=== PATIENT | male | born 1965 | race Caucasian/White ===

== ENCOUNTER → 2023-10-08 | Outpatient (CLI) | payer BC | LOC: M RAD 06:33 | PROVIDERS: ATTEND Family Medicine | DX: Z12.2 Encounter for screening for malignant neoplasm of respiratory organs (principal); F17.210 Nicotine dependence, cigarettes, uncomplicated; R91.8 Other nonspecific abnormal finding of lung field ==

== ENCOUNTER 2024-03-16 08:16 | Emergency (ER) | payer OTHER, BC ==
[~2024-03-16] VITALS: Ht 182.9 cm; Wt 68.7 kg
[2024-03-16] MEDS: BOOSTRIX VACCINE (TETANUS/DIPHTH/ACEL. PERTUSSIS) 0.5ML SYR IM ONE (09:26)
[2024-03-16] MEDS: LIDOCAINE 1% MDV 20ML VIAL SC ONE (09:26)
[2024-03-16 10:49] VITALS: BP 141/67; TEMP 98.3; O2SAT 98
[2024-03-16] MEDS: BACITRACIN OINTMENT 30GM TUBE TOP STA (10:54)
== END 2024-03-16 10:55 | disposition home or self-care (01) ==
LOC: M ED 08:16
DX: S61.207A Unspecified open wound of left little finger without damage to nail, initial encounter (principal); W23.2XXA Caught, crushed, jammed or pinched between a moving and stationary object, initial encounter; Y92.9 Unspecified place or not applicable; Y93.9 Activity, unspecified; Y99.0 Civilian activity done for income or pay; Z87.891 Personal history of nicotine dependence
CPT/HCPCS: 12001; 73140; 90471; 90715; 99284; J0665